=== PATIENT | female | born 2000 | race Hispanic/Latino ===

== ENCOUNTER 2018-11-09 09:17 | Emergency (ER) | payer BC, OTHER ==
[2018-11-09 10:01] LABS: HCG,QUAL RESULT NEGATIVE (NEGATIVE)
[2018-11-09 10:02] LABS: APPEARANCE,URINE Clear (CLEAR); BILIRUBIN,URINE Negative (NEGATIVE); COLOR,URINE Yellow (YELLOW); GLUCOSE, URINE (UA) Negative (NEGATIVE); KETONES,URINE Negative (NEGATIVE); LEUKOCYTE ESTERASE ,URINE Negative (NEGATIVE); NITRATE,URINE Negative (NEGATIVE); OCCULT BLOOD,URINE Negative (NEGATIVE); PROTEIN,URINE Negative (NEGATIVE)
[2018-11-09 10:03] LABS: BASOPHILS % (AUTO) 1.5 % (0.0-5.0); EOSINOPHILS % (AUTO) 1.4 % (0.0-8.0); HEMATOCRIT 42.5 % (36-48); LYMPHOCYTES % (AUTO) 38.5 % (21.0-51.0); MEAN CORPUSCULAR HEMOGLOBIN 29.5 pg (27.0-33.0); MEAN CORPUSCULAR HGB CONC 33.6 g/dL (32.0-36.0); MEAN CORPUSCULAR VOLUME 87.9 fL (80-100); MONOCYTES % (AUTO) 11.4 % (3.0-13.0); NEUTROPHILS % (AUTO) 47.2 % (40.0-77.0); NUCLEATED RED BLOOD CELLS 0.2 % (0.0-0.19); PLATELET COUNT (AUTO) 231 K/uL (130-400); RED BLOOD CELL COUNT(AUTO) 4.83 MIL/uL (4.00-5.50); RED CELL DISTRIBUTION WIDTH 12.6 % (11.0-15.5); WHITE BLOOD COUNT (AUTO) 4.4 K/uL (4.8-10.8)
[2018-11-09 10:07] LABS: AMPHET/METH SCREEN,URINE NEGATIVE (NEGATIVE); BARBITURATE SCREEN, URINE NEGATIVE (NEGATIVE); BENZODIAZEPINES SCREEN,URINE NEGATIVE (NEGATIVE); CANNABINOID SCREEN,URINE NEGATIVE (NEGATIVE); COCAINE SCREEN,URINE NEGATIVE (NEGATIVE); OPIATE SCREEN,URINE NEGATIVE (NEGATIVE); PHENCYCLIDINE SCREEN,URINE NEGATIVE (NEGATIVE)
[2018-11-09 10:24] LABS: CREATININE 0.6 mg/dL (0.5-1.5); POTASSIUM 3.3 mmol/L (3.5-5.1)
[2018-11-09 10:28] LABS: ALBUMIN 3.8 g/dL (3.5-5.0); BILIRUBIN,TOTAL 1.3 mg/dL (0.2-1.0); TOTAL PROTEIN, SERUM 6.9 g/dL (6.0-8.3)
== END 2018-11-09 11:38 | disposition home or self-care (01) ==
LOC: EDH 09:17
DX: R10.30 Lower abdominal pain, unspecified (principal)
CPT/HCPCS: 36415; 80053; 80305; 81003; 81025; 83690; 85025; 93005

== ENCOUNTER 2018-12-08 00:11 | Emergency (ER) | payer BC ==
[2018-12-08] MEDS ORDERED: DIPHENHYDRAMINE HCL 25 MG CAPSULE ONE (01:38)
== END 2018-12-08 01:45 | disposition home or self-care (01) ==
LOC: EDH 00:11
DX: L25.8 Unspecified contact dermatitis due to other agents (principal); T50.995A Adverse effect of other drugs, medicaments and biological substances, initial encounter; Y92.89 Other specified places as the place of occurrence of the external cause
CPT/HCPCS: 87880; 99283; Q0163

== ENCOUNTER 2021-05-11 15:01 | Emergency (ER) | payer BC, OTHER ==
[~2021-05-11] VITALS: Ht 157.5 cm; Wt 61.2 kg
[2021-05-11 15:04] VITALS: BP 113/74
[2021-05-11 15:55] VITALS: BP 97/37
[2021-05-11] MEDS ORDERED: METH4TAB3 PO (18:45)
[2021-05-11] MEDS ORDERED: PREDNISONE 20 MG TABLET PO ONE (19:00)
[2021-05-11] MEDS ORDERED: PREDNISONE 20 MG TABLET ONE (20:08)
[2021-05-11 20:18] VITALS: BP 102/46
== END 2021-05-11 20:20 | disposition home or self-care (01) ==
LOC: EDH 15:01
DX: S10.91XA Abrasion of unspecified part of neck, initial encounter (principal); R07.89 Other chest pain; V47.5XXA Car driver injured in collision with fixed or stationary object in traffic accident, initial encounter; V89.2XXA Person injured in unspecified motor-vehicle accident, traffic, initial encounter; Y93.89 Activity, other specified; Y92.89 Other specified places as the place of occurrence of the external cause; Y99.8 Other external cause status
CPT/HCPCS: 72040; 81025

== ENCOUNTER 2021-11-08 22:04 | Emergency (ER) | payer MEDICAID ==
[~2021-11-08] VITALS: Ht 157.5 cm; Wt 67.1 kg
[~2021-11-08 22:04] MED LIST: METH4TAB3 PO
[2021-11-08 22:05] VITALS: BP 119/74
[2021-11-08] MEDS ORDERED: ACET-66 PO (23:11)
[2021-11-08] MEDS ORDERED: DIPH25 PO (23:11)
== END 2021-11-08 23:25 | disposition home or self-care (01) ==
LOC: EDH 22:04
DX: O98.512 Other viral diseases complicating pregnancy, second trimester (principal); U07.1 COVID-19; Z3A.20 20 weeks gestation of pregnancy; Z79.52 Long term (current) use of systemic steroids
CPT/HCPCS: 87635; 87804 ×2; 99283; C9803